=== PATIENT | female | born 1995 | race Two or more races ===

== ENCOUNTER 2021-10-12 18:17 | Emergency (ER) | payer OTHER, SELFPAY ==
--- NOTE | ~2021-10-12 | XR_ITS ---
EXAMINATION: PORTABLE CHEST 1 VIEW CLINICAL INFORMATION: Cough . COMPARISON: No recent pertinent prior studies are available for comparison. TECHNIQUE: Portable frontal view of the chest was obtained. FINDINGS: The lungs are mildly hypoexpanded. No focal infiltrate, effusion, edema, or pneumothorax. Cardiac and mediastinal silhouettes are within normal limits for technique. No acute bony abnormality seen. XR/XR chest 1V IMPRESSION: No evidence of acute disease.
[2021-10-12 18:20] VITALS: BP 124/62; PULSE 100; RESP 16; TEMP 37.1; O2SAT 100; BMI 26.6
[2021-10-12 18:51] LABS: COVID-19 Test Positive (Negative); Strep A Nucleic Acid Negative (Negative)
[2021-10-12 18:52] LABS: IDNOW Serial# 9DB6401D; Influenza A Negative (Negative); Influenza B2 Negative (Negative)
--- NOTE | 2021-10-12 20:45 | ED.URI ---
HPI - URI/Sore Throat General Chief Complaint: Upper Respiratory Symptoms Stated Complaint: Cough/Body aches/Sore throat Time Seen by Provider: 10/12/21 20:45 Source: patient Mode of arrival: ambulatory Limitations: no limitations History of Present Illness HPI Narrative: 26 y/o female presents to the ER with 2 days of not feeling well. She reports 2 days of nasal congestion, body aches, fatigue, sore throat and dry cough. She has pain in her chest when she coughs and takes deep breaths. She is generally feeling unwell. She is eating last but able to tolerate p.o.. No nausea, vomiting, diarrhea. She denies any fevers at home. She denies any known sick contacts. She is vaccinated for COVID MD elicited complaint: cough, sore throat and nasal congestion Onset (ago): day(s) (2) Consistency: progressively worsening Severity: moderate Description of mucous: clear Able to tolerate fluids by mouth: Yes Exacerbating factors: nothing Relieving factors: nothing Associated symptoms: chills, myalgias, headache, nasal congestion, sore throat, cough, chest pain and shortness of breath Treatments prior to arrival: none Related Data Previous Rx's Medication Instructions Recorded benzonatate 100 mg capsule 100 mg PO TID PRN #30 cap 10/12/21 Allergies Allergy/AdvReac Type Severity Reaction Status Date / Time No Known Allergies Allergy Verified 10/12/21 18:24 Review of Systems Review of Systems: Constitutional: No Fever, +Chills ENT/Mouth: + sore throat, No Rhinorrhea, No Swallowing Difficulty Cardiovascular: + Chest Pain, + SOB, No Orthopnea, No Edema Respiratory: No Cough, No Sputum, No Wheezing, No dyspnea Gastrointestinal: No Nausea, No Vomiting, No Diarrhea, No abdominal Pain Musculoskeletal: No joint pain, + Myalgias Skin: No Skin Lesions, No rash Neuro: + Weakness, No Numbness, No Dizziness, + Headache Psych: No Anxiety/Panic, No Depression Heme/Lymph: No Bruising, No Lymphadenopathy Endocrine: No Polyuria, No Polydipsia Physical Exam Vital Signs: Vital Signs: Last Vital Signs Temp 98.7 F 10/12/21 18:20 Pulse 100 10/12/21 18:20 Resp 16 10/12/21 18:20 BP 124/62 10/12/21 18:20 Pulse Ox 100 10/12/21 18:20 BMI result Body Mass Index 26.6 Appearance: Alert. Oriented X3. No acute distress. Eyes: Pupils equal, round and reactive to light. ENT: Pharynx with moderate generalized erythema, no tonsillar exudate or swelling. Neck: Normal inspection. Neck supple. CVS: Normal heart rate and rhythm. Pulses normal. Respiratory: No respiratory distress. Breath sounds normal. Skin: Skin warm and dry. Normal skin color. Normal skin turgor. No rashes. Extremities: Normal inspection, normal range of motion Neuro: Oriented X 3. Grossly normal, nonfocal Course Course Course Narrative: 26-year-old female presents to the ER with 2 days of body ache, congestion, sore throat and cough. Her vital signs are normal on arrival, SpO2 100% on room air. Her lungs are clear. Chest x-ray was performed and showed no acute abnormality. She was tested for COVID, flu, strep. She is found to be COVID positive. communications representative was used to discussed diagnosis and management as well as return precautions. She is stable for discharge home with supportive care. MDM - URI/Sore Throat Lab Data Labs: Lab Results 10/12/21 10/12/21 10/12/21 Range/Units 18:26 18:26 18:26 COVID-19 (JABARI) Positive A (Negative) COVID-19 Clin Com See Note Influenza Type A (LIANNE) Negative (Negative) Influenza Type B (LIANNE) Negative (Negative) Influenza A & B Note See Note S. pyogenes GrpA LIANNE Negative (Negative) Discharge Plan Discharge Clinical Impression: COVID-19 Patient Disposition: Home, Self-Care Instructions: Covid-19 Viral Syndrome and Novel Coronavirus (ED) Hey/Ath Additional Instructions: You were found to be COVID-19 POSITIVE today. Your x-ray and oxygen levels were normal. Rest. Drink plenty of fluids. Do not go out in public while you are not feeling well. Take over the counter cold/flu medications as needed for your symptoms. Take Tylenol and/or Motrin as needed for fevers and body aches. Follow up with your doctor this week. If you shortness of breath worsens , if you develop difficulty breathing or any other concerning symptom come back to the ER for further evaluation. Prescriptions: New benzonatate 100 mg capsule 100 mg PO TID PRN (Reason: cough) Qty: 30 0RF Stand Alone Forms: Work/School Release Print Language: Mongolian
== END 2021-10-12 21:36 | disposition home or self-care (01) ==
LOC: HO.ED 21:15
PROVIDERS: Emergency Provider Internal Medicine; PCP Hospitalist
DX: U07.1 COVID-19 (principal)
CPT/HCPCS: 71045; 87502; 87635; 87651; 99283

== ENCOUNTER → 2021-10-30 13:02 | Outpatient (BNVA) | payer SELFPAY | PROVIDERS: PCP Hospitalist; Visit Provider Physician Assistant Medical | DX: R76.11 Nonspecific reaction to tuberculin skin test without active tuberculosis (principal) ==